=== PATIENT | male | born 1990 | race Caucasian/White ===

== ENCOUNTER 2022-02-15 12:33 | Emergency (ER) | payer OTHER ==
[~2022-02-15] VITALS: Ht 177.8 cm; Wt 77.1 kg
--- NOTE | 2022-02-15 12:33 | NUR ---
BIB [facility] and [employer] c/o self inflicted middle finger laceration. PLACED ON BED, AAOX4, BREATHING EVEN AND UNLABORED SATURATING AT 98%RA. DENIES SI OR HURT OTHERS. WILL KEEP MONITORING.
[2022-02-15 13:05] LABS: BASOPHILS % (AUTO) 0.6 % (0.0-2.0); EOSINOPHILS % (AUTO) 1.2 % (0.0-6.0); HEMATOCRIT 40 % (39-51); HEMOGLOBIN 13.5 g/dL (13.5-17.5); LYMPHOCYTES # (AUTO) 1.7 K/uL (0.8-4.8); MEAN CORPUSCULAR HGB CONC 34 g/dl (31.0-36.0); MEAN CORPUSCULAR VOLUME 93 fL (80-96); MONOCYTES # (AUTO) 0.5 K/uL (0.1-1.30); MONOCYTES % (AUTO) 6.6 % (2.0-12.0); NEUTROPHILS # (AUTO) 5.2 K/uL (1.8-8.9); NEUTROPHILS % (AUTO) 68.6 % (43.0-81.0); PLATELET COUNT (AUTO) 177 K/uL (150-450); RED BLOOD CELL COUNT(AUTO) 4.32 MIL/uL (4.5-6.0); WHITE BLOOD COUNT (AUTO) 7.6 K/uL (4.3-11.0)
--- NOTE | 2022-02-15 13:07 | NUR ---
COVID TEST COLLECTED AND SENT
--- NOTE | 2022-02-15 13:07 | NUR ---
PT PROVIDED WITH URINAL
[2022-02-15 13:29] LABS: ALANINE AMINOTRANSFERASE 45 U/L (12-78); ALBUMIN 4.1 g/dL (3.4-5.0); ALCOHOL, BLOOD < 3 mg/dL (0-0); ALKALINE PHOSPHATASE 50 U/L (46-116); ASPARTATE AMINOTRANSFERASE 30 U/L (15-37); BILIRUBIN,DIRECT 0.1 mg/dL (0.0-0.2); BILIRUBIN,TOTAL 0.5 mg/dL (0.2-1.0); CALCIUM, SERUM 8.8 mg/dL (8.5-10.1); CARBON DIOXIDE 26 mmol/L (21-32); CHLORIDE 107 mmol/L (98-107); CREATININE 0.9 mg/dL (0.6-1.3); GLUCOSE 97 mg/dL (74-106); POTASSIUM 3.6 mmol/L (3.5-5.1); SODIUM SERUM 142 mmol/L (136-145); UREA NITROGEN, BLOOD 12 mg/dL (7-18)
--- NOTE | 2022-02-15 13:29 | NUR ---
URINE COLLECTED AND SENT
[2022-02-15 13:34] LABS: ACETAMINOPHEN < 10 ug/ml (10-30)
[2022-02-15 14:02] LABS: BILIRUBIN,URINE SMALL (NEGATIVE); COLOR,URINE RED (YELLOW); LEUKOCYTE ESTERASE ,URINE NEGATIVE (NEGATIVE); NITRITE, URINE POSITIVE (NEGATIVE); PH,URINE 6.5 (5.0-8.0); PROTEIN,URINE 100 mg/dl (NEGATIVE); UGLUCOSE NEGATIVE (NEGATIVE)
[2022-02-15 14:31] LABS: RBC,URINE TOO NUMEROUS TO COUN /HPF (0-2); WBC,URINE NONE SEEN /HPF (0-3)
[2022-02-15 14:32] LABS: BACTERIA,URINE None seen /HPF (None Seen); SQUAMOUS EPITHELIAL CELL,UR Rare /HPF (None Seen)
--- NOTE | 2022-02-15 15:25 | NUR ---
PATIENT WAS PUT ON 5150 HOLD BY [employer].
[2022-02-15] MEDS ORDERED: LORAZEPAM INJ 2 MG/ML VIAL ONE (15:33)
[2022-02-15] MEDS: LORAZEPAM INJ 2 MG/ML VIAL IVP ONE (15:35)
--- NOTE | 2022-02-15 15:37 | NUR ---
PATIENT TAKEN TO CT VIA [facility]
[2022-02-15 15:44] LABS: ALANINE AMINOTRANSFERASE 44 U/L (12-78); ALBUMIN 4.1 g/dL (3.4-5.0); ALCOHOL, BLOOD < 3 mg/dL (0-0); ALKALINE PHOSPHATASE 53 U/L (46-116); ASPARTATE AMINOTRANSFERASE 33 U/L (15-37); BILIRUBIN,DIRECT 0.2 mg/dL (0.0-0.2); BILIRUBIN,TOTAL 0.6 mg/dL (0.2-1.0)
[2022-02-15] MEDS: OLANZAPINE 10 MG VIAL IM ONE (16:57)
--- NOTE | 2022-02-16 03:19 | NUR ---
ALONSO SCHWAB AT PT'S BEDSIDE FOR EVAL Addendum: 02/16/22 at 0433 by THEO KAVITHA RUST CRISIS TEAM AT PT'S BEDSIDE FOR EVAL
[2022-02-16 04:54] VITALS: BP 131/77
--- NOTE | 2022-02-16 04:54 | NUR ---
Patient discharged to home in stable condition. Written and verbal after care instructions given. Patient verbalizes understanding of instruction.
== END 2022-02-16 04:54 | disposition home or self-care (01) ==
LOC: ER 12:54
DX: F23 Brief psychotic disorder (principal); F15.10 Other stimulant abuse, uncomplicated; F12.10 Cannabis abuse, uncomplicated; S61.213A Laceration without foreign body of left middle finger without damage to nail, initial encounter; X83.8XXA Intentional self-harm by other specified means, initial encounter; Y92.410 Unspecified street and highway as the place of occurrence of the external cause; Z20.822 Contact with and (suspected) exposure to COVID-19
CPT/HCPCS: 99285; 96374; 70450; 85025; 80048; 87086; 80076 ×2; 81001; 36415; 87426; 80143; 80320 ×2; 80307; J2060; C9803; G0480